=== PATIENT | female | born 2000 ===

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

== ENCOUNTER 2018-04-24 15:23 | Emergency (ER) | payer MEDICAID, OTHER ==
[2018-04-24 15:40] VITALS: BP 132/83; PULSE 92; RESP 18; TEMP 98.1; O2SAT 98
--- NOTE | 2018-04-24 16:13 | ED PDOC ---
HPI: CCC, URI, Sore Throat Time Seen by Provider: 04/24/18 15:43 Chief Complaint (Nursing): Flu-like Symptoms Chief Complaint (Provider): Flu-like Symptoms History Per: Patient History/Exam Limitations: no limitations Onset/Duration Of Symptoms: Days (x2) Current Symptoms Are (Timing): Still Present Additional Complaint(s): 17 year old female arrives to ED with complaints of a dry cough, nasal congestion and tactile fever for the last 2 days. She reports taking Nyquil for relief last night but did not take any medication today. Patient is afebrile upon arrival. PMD: [facility] Past Medical History Reviewed: Historical Data, Nursing Documentation, Vital Signs Vital Signs: Last Vital Signs Temp 98.1 F 04/24/18 15:36 Pulse 92 H 04/24/18 15:36 Resp 18 04/24/18 15:36 BP 132/83 04/24/18 15:36 Pulse Ox 98 04/24/18 16:30 - Medical History PMH: No Chronic Diseases - Surgical History Surgical History: Tonsillectomy - Family History Family History: States: Unknown Family Hx - Home Medications Home Medications: Ambulatory Orders Medication Instructions Recorded Fexofenadine/Pseudoephedrine 1 each PO BID PRN #12 tab.er.[id number] 04/24/18 [Kat-D 12 Hour Tablet] - Allergies Allergies/Adverse Reactions: Allergies Allergy/AdvReac Type Severity Reaction Status Date / Time cat dander Allergy ITCHING Verified 04/06/17 19:16 grass pollen Allergy ITCHING Verified 04/06/17 19:16 Review of Systems ROS Statement: Except As Marked, All Systems Reviewed And Found Negative Constitutional: Positive for: Fever (tactile) ENT: Positive for: Nose Congestion Respiratory: Positive for: Cough (dry) Physical Exam - Reviewed Nursing Documentation Reviewed: Yes Vital Signs Reviewed: Yes - Physical Exam Appears: Positive for: Non-toxic, No Acute Distress Head Exam: Positive for: ATRAUMATIC, NORMAL INSPECTION, NORMOCEPHALIC ENT: Positive for: Normal ENT Inspection, TM Is/Are (clear bilaterally). Negative for: Pharyngeal Erythema, Tonsillar Swelling Neck: Positive for: Normal, Supple Cardiovascular/Chest: Positive for: Regular Rate, Rhythm Respiratory: Positive for: Normal Breath Sounds. Negative for: Respiratory Distress Neurologic/Psych: Positive for: Alert (x3), Oriented - ECG O2 Sat by Pulse Oximetry: 98 (RA) Pulse Ox Interpretation: Normal Medical Decision Making Medical Decision Making: Initial Impression: URI Time: 1613 --Upon provider evaluation, patient is medically stable and requires no further treatment in the ED at this time. Patient will be discharged home with Rx for Kat-D. Counseling was provided and all questions were answered regarding diagnosis. There is agreement to discharge plan. Return if symptoms persist or worsen. Clinical Impression: URI Scribe Attestation: Documented by Joycelyn Lopez, acting as a scribe for Dunia Mirza PA-C. Provider Scribe Attestation: All medical record entries made by the Scribe were at my direction and personally dictated by me. I have reviewed the chart and agree that the record accurately reflects my personal performance of the history, physical exam, medical decision making, and the department course for this patient. I have also personally directed, reviewed, and agree with the discharge instructions and disposition. Disposition - Clinical Impression Clinical Impression: URI (upper respiratory infection) - Patient ED Disposition Is Patient to be Admitted: No Counseled Patient/Family Regarding: Diagnosis, Need For Followup, Rx Given - Disposition Referrals: [facility] [Outside] Disposition: Routine/Home Disposition Time: 16:13 Condition: GOOD Prescriptions: Fexofenadine/Pseudoephedrine [Kat-D 12 Hour Tablet] 1 each PO BID PRN #12 tab.er.[id number] PRN Reason: Cough And Congestion Instructions: Viral Upper Respiratory Infection, Adult (DC) Forms: [employer] (Hebrew), [facility] ED School/Work Excuse
== END 2018-04-24 17:10 | disposition home or self-care (01) ==
LOC: H.ER 15:23
DX: J06.9 Acute upper respiratory infection, unspecified (principal)